=== PATIENT | male | born 1970 | race Caucasian/White ===

== ENCOUNTER 2016-09-04 19:37 | Emergency (ER) | payer OTHER ==
[~2016-09-04] VITALS: Ht 188 cm; Wt 83.5 kg
[2016-09-04] MEDS ORDERED: ONDA4 PO (19:48)
[2016-09-04] MEDS ORDERED: ACET325C PO (19:48)
[2016-09-04] MEDS ORDERED: GABA-531 PO (19:48)
[2016-09-04] MEDS ORDERED: DSS100 PO (19:48)
[2016-09-04] MEDS ORDERED: METO50 PO (19:48)
[2016-09-04] MEDS ORDERED: ASCO500 PO (19:48)
[2016-09-04] MEDS ORDERED: ZINC220C6 PO (19:48)
[2016-09-04] MEDS ORDERED: MULT-950 PO (19:48)
[2016-09-04] MEDS ORDERED: SENN-30 PO (19:48)
[2016-09-04] MEDS ORDERED: OXYC10 PO (19:48)
[2016-09-04] MEDS ORDERED: ERTA1I IV (19:48)
[2016-09-04 19:54] VITALS: BP 150/87
== END 2016-09-04 20:54 | disposition home or self-care (01) ==
LOC: EMS 19:40
DX: T81.31XA Disruption of external operation (surgical) wound, not elsewhere classified, initial encounter (principal); I10 Essential (primary) hypertension
CPT/HCPCS: 99282